=== PATIENT | male | born 1945 | race Caucasian/White ===

== ENCOUNTER → 2017-10-10 09:43 | Outpatient (CLI) | payer MEDICARE, OTHER, SELFPAY ==
--- NOTE | 2017-10-10 09:54 | RAD_ITS ---
STUDY: X-RAY - PELVIS REASON FOR EXAM: Male, 72 years old. Bilateral hip pain, no known injury TECHNIQUE: One view of the pelvis was obtained. COMPARISON: None. FINDINGS: There is a non-specific bowel gas pattern. Normal visualized soft tissue structures. Normal bilateral iliac wings, sacroiliac joints and visualized sacrum. Normal visualized bilateral superior and inferior pubic rami. Normal pubic symphysis. Normal ischial tuberosities. Normal visualized right femoral head. Normal right acetabulum. Normal right hip joint. Normal visualized left femoral head. Normal left acetabulum. Normal left hip joint. There are degenerative changes of the visualized lower lumbar spine. RAD/Pelvis 1 or 2 Views IMPRESSION: Degenerative changes of the visualized lower lumbar spine. The bony pelvis and left and right hip joints appear within normal limits. Electronically Signed: David Lucio MD at 17:00 EDT , Service support ,
[2017-10-10 12:19] LABS: Absolute Lymphocyte Count 1.39 X10^3/ul (0.83-4.51); Absolute Neutrophil Count 4.3 X10^3/uL (2.0-7.7); Basophil# 0.03 X10^3/uL; Basophil% 0.5 % (0-1); Eosinophil# 0.11 X10^3/uL; Eosinophils% 1.7 % (0-5); Hematocrit 47.1 % (40-54); Hemoglobin 15.9 g/dl (13.0-16.5); Lymphocyte # 1.39 X10^3/ul (4.0); Lymphocyte % 21.4 % (19-41); Mean Corp Hgb Conc 33.8 g/gl (32-36); Mean Corpuscular Hgb 28.6 pg (27.0-32.0); Mean Corpuscular Volume 84.9 fL (80-94); Mean Platelet Vol. 11.2 fl (6.2-12.0); Monocyte% 10.8 % (0-10); Neutrophil # 4.26 X10^3/uL (2.7-7.7); Neutrophil % 65.4 % (47-70); Platelet Count 237 K/mm3 (150-450); RBC Distribution Width CV 14.4 % (11.6-14.6); RBC Distribution Width SD 44.7 fl (35.1-43.9); Red Blood Count 5.55 M/mm3 (4.6-6.2); White Blood Count 6.5 K/mm3 (4.4-11.0)
[2017-10-10 12:21] LABS: POSITIVE COUNT NO; POSITIVE DIFFERENTIAL NO; POSITIVE MORPHOLOGY NO
[2017-10-10 12:38] LABS: ALB/GLOB Ratio 1.1 RATIO (0.9-2.4); AST(SGOT) 19 U/L (15-37); Alanine Aminotransfer ALT/SGPT 31 U/L (16-61); Albumin, Serum 4.2 g/dL (3.2-5.0); Alkaline Phosphatase 81 U/L (45-117); Anion Gap 8 (5-15); BUN 20 mg/dL (7-18); BUN/Creat Ratio 18.7 RATIO (10-20); Calcium,Total 9.3 mg/dL (8.5-10.1); Chloride 103 mmol/L (98-107); Creatinine, Serum 1.07 mg/dL (0.70-1.30); EST Glomerular Filtration Rate 72 mL/min (>60); Est Glom Filt Rate - Afr Amer 88 mL/min (>60); Globulin 3.7 g/dL (2.2-4.2); Glucose 87 mg/dL (74-106); Potassium 3.6 mmol/L (3.5-5.1); Protein, Total 7.9 g/dL (6.4-8.2); Rheumatoid Factor < 10.0 IU/mL (<15); Sodium Level 142 mmol/L (136-145)
[2017-10-17 11:33] LABS: CCP IgG Antibodies 18 units (0-19); HEPATITIS B SURFACE AG Negative (Negative); HLA B27 Negative (.); Hep B Surface Antibodies Non Reactive (.); Hep C Antibodies 0.1 s/co ratio (0.0-0.9)
== END ==
PROVIDERS: Family Provider Family Medicine; PCP Family Medicine; Visit Provider Internal Medicine Rheumatology
DX: M06.4 Inflammatory polyarthropathy (principal); M47.897 Other spondylosis, lumbosacral region; I48.91 Unspecified atrial fibrillation; I10 Essential (primary) hypertension; N40.1 Benign prostatic hyperplasia with lower urinary tract symptoms; K57.90 Diverticulosis of intestine, part unspecified, without perforation or abscess without bleeding; G47.33 Obstructive sleep apnea (adult) (pediatric); Z86.73 Personal history of transient ischemic attack (TIA), and cerebral infarction without residual deficits
CPT/HCPCS: 36415; 72170; 80053; 81374; 85025; 86200; 86431; 86706; 86803; 87340

== ENCOUNTER 2023-02-14 07:10 | Emergency (ER) | payer MEDICARE, OTHER, SELFPAY ==
[2023-02-14 07:12] VITALS: BP 162/81; PULSE 74; RESP 16; TEMP 36.2; O2SAT 97; BMI 25.2
--- NOTE | 2023-02-14 07:22 | CT_ITS ---
HISTORY: chest wall pain - broken ribs -- please include all lower ribs. TECHNIQUE: Helically acquired images were obtained of the chest without contrast. A radiation dose optimization technique was used for this scan. 621 images. COMPARISON: XR 12/14/2013. FINDINGS: LARGE AIRWAYS: Patent. LUNGS: Mild linear bibasilar atelectasis and scarring with chronic elevation of the right hemidiaphragm. Scattered micronodular opacities bilaterally. 7 mm irregular groundglass nodule in the left lower lobe. PLEURA: No pneumothorax or significant pleural effusion. Small calcified and noncalcified pleural plaques bilaterally. HEART/PERICARDIUM: Heart within normal limits in size with coronary artery calcification. No pericardial effusion. VESSELS: Thoracic aorta nondilated. MEDIASTINUM/LOUISA: Borderline enlarged calcified and noncalcified mediastinal lymph nodes. UPPER ABDOMEN: 2 to 3 mm nonobstructing bilateral renal calculi. Small calcified granuloma in the liver. BONES: Nondisplaced right ninth and 10th rib fractures laterally. CT/Chest without Contrast IMPRESSION: Nondisplaced right ninth and 10th rib fractures laterally. 7 mm groundglass pulmonary nodule in the left lower lobe. Recommend 6 month follow-up. Scattered pulmonary micronodules, which may be infectious or inflammatory. Small calcified and noncalcified pleural plaques; recommend correlation with occupational exposure history. Small nonobstructing renal calculi. Electronically Signed: Alexandra High MD at 8:22 EST ,
--- NOTE | 2023-02-14 07:23 | EDS_ITS ---
HPI History of Present Illness Chief Complaint: Other, Pain/Inj Informant: patient and spouse/S.O. Narrative Narrative: 77-year-old male presenting to the emergency room with right lower rib pain. Patient reported falling about 1 week ago. He had recent x-rays that revealed 1/9 rib fracture on the right. He states that he was prescribed lidocaine patches but is having a hard time getting them approved through insurance so he has not been utilizing them. He has been taking Tylenol for pain. He denies any cough hemoptysis or emesis. No blood in the stool or urine. No reported fevers. All movement and breathing is painful. He is on Eliquis for atrial fibrillation. She denies any bruising in the area. He notes that he has been constipated has been taking a stool softener. Patient states he had a back injection 1 week ago. He is unsure of exactly what he was given. He states that the day of the injection his right leg was numb. He sat down on the toilet when he went to get up the leg was numb which resulted in the fall. That has subsequently resolved and the back pain has improved. PFSH PFSH Home Medications tamsulosin 0.4 mg capsule 0.4 mg PO DAILY 05/22/13 [History Last Taken 05/22/13 08:00] Apixaban [Eliquis] 5 mg PO BID 60 days 05/23/13 [Rx Last Taken Unknown] atenolol 25 mg tablet 25 mg PO BID ##30 11/16/13 [Rx Last Taken Unknown] Albuterol Sulfate [Proair Hfa] 2 puff IH Q4H PRN PRN Wheezing 12/14/13 [History Last Taken Unknown] Cetirizine Hcl [Zyrtec] 10 mg PO DAILY 12/14/13 [History Last Taken Unknown] aspirin 81 mg chewable tablet 81 mg PO DAILY@0800 12/14/13 [History Last Taken Unknown] flecainide 50 mg tablet 100 mg PO BID 12/14/13 [History Last Taken Unknown] magnesium oxide 400 mg (241.3 mg magnesium) tablet 400 mg PO DAILY 12/14/13 [History Last Taken Unknown] docusate sodium 100 mg capsule (Colace) 100 mg PO BID PRN constipation #20 caps 02/14/23 [Rx Last Taken Unknown] oxycodone-acetaminophen 5 mg-325 mg tablet 1 tab PO Q6H PRN PRN pain 5 days #20 TABLETS 02/14/23 [Rx Last Taken Unknown] Allergy/AdvReac Type Severity Reaction Status Date / Time nabumetone [From Relafen] AdvReac Nausea/Vom/ Verified 02/14/23 07:13 Diarrhea oxaprozin [From Daypro] AdvReac Nausea/Vom/ Verified 02/14/23 07:13 Diarrhea simvastatin [From Zocor] AdvReac Other Verified 02/14/23 07:13 Social History Smoking Status: Unknown if ever smoked ROS ROS ED Constitutional Constitutional ED: Denies chills, fever(s) or weight loss Eyes Eyes: Denies change in vision or diplopia ENT ENT ED: Denies ear pain, rhinorrhea or sore throat Cardiovascular Cardiovascular: Reports chest pain; Denies orthopnea, palpitations or racing heartbeat Respiratory/Chest Respiratory/Chest: Denies cough, dyspnea or orthopnea Gastrointestinal Gastrointestinal: Reports constipation; Denies abdominal pain, diarrhea, nausea or vomiting Genitourinary Genitourinary ED: Denies dysuria, hematuria or urinary frequency Musculoskeletal Musculoskeletal: Reports back pain; Denies arthralgias or myalgias Integumentary Denies abscess or rash Neurologic Neurologic: Denies headache(s) or weakness Psychiatric Psychiatric: Denies anxiety, depression, suicidal ideation or suicidal thoughts Endocrine Endocrinology: Denies polydipsia, polyphagia or polyuria Allergic/Immunologic Allergic/Immunologic ED: Denies mouth swelling, tongue swelling or urticaria EXAM Physical Exam Const Vital Signs: 02/14/23 07:12 02/14/23 07:18 Temperature 97.2 F L Temperature Source Temporal Pulse Rate 74 Respiratory Rate 16 Respiratory Effort Normal Non-Labored Respiratory Pattern Normal Blood Pressure 162/81 H Blood Pressure Mean 108 Pulse Ox 97 Oxygen Delivery Method Room Air Positive well nourished and well developed General Appearance ED: well developed HEENT Reports normocephalic, head/scalp atraumatic and moist mucous membranes Eyes PERRL and EOMs intact bilaterally Neck no lymphadenopathy, supple and no JVD Chest Wall Chest Narrative: Patient is splinting holding the right mid to lower ribs. He has tenderness in the mid axillary region. No ecchymosis seen. No crepitance. Resp normal respiratory effort and clear to auscultation bilaterally Cardio regular rate, regular rhythm and no murmurs GI normal to inspection, nondistended, normoactive bowel sounds and non-tender Palpation: soft Back/Spine no CVA tenderness and normal ROM Extremity normal to inspection General Extremety ED: Negative for edema General Extremity: Negative for edema Neuro oriented x3 and CN's II-XII intact bilaterally Sensorium / Orientation: alert Motor Exam: strength 5/5 throughout Psych mental status grossly normal Mood & Affect: Negative for depressed or tearful Skin no rashes or lesions noted and no wounds MDM MDM MDM Narrative Medical decision making narrative: Basic blood work was obtained and was negative. BUN of 21 with creatinine 1.14. White count 9.6. Normal liver enzymes. CT of the chest demonstrated nondisplaced fractures of the ninth and 10th rib fracture. No pleural effusion pulmonary contusion or infiltrate noted. No obvious liver or renal injury. Patient received morphine and Toradol and is resting more comfortably. I discussed with the above results with the patient and his . We will treat at home with Percocet. Because of the constipation was also encouraged to drink fluids and I will write for twice daily Colace. I will have him follow-up with primary care in a week return if worsening or concerns History & Record Review Discussion w/independent historian: Patient and Family Lab Data Attestation: I reviewed the patient's lab results. Labs: Laboratory Results - last 24 hr 02/14/23 07:29 WBC 9.6 RBC 5.45 Hgb 15.6 Hct 48.1 MCV 88.3 MCH 28.6 MCHC 32.4 RDW Std Deviation 48.3 H RDW Coeff of Dae 14.9 H Plt Count 231 MPV 10.6 Immature Gran % (Auto) 0.600 Neut % (Auto) 73.4 H Lymph % (Auto) 15.8 L [place] % (Auto) 7.8 Eos % (Auto) 1.9 Baso % (Auto) 0.5 Absolute Neuts (auto) 7.0 Absolute Lymphs (auto) 1.51 Nucleated RBC % 0 Sodium 137 Potassium 4.0 Chloride 104 Carbon Dioxide 29.0 Anion Gap 4 L BUN 29 H Creatinine 1.14 Estim Creat Clear Calc 62.30 Est GFR (MDRD) Af Amer 80 Est GFR (MDRD) Non-Af 66 BUN/Creatinine Ratio 25.4 H Glucose 99 Calcium 9.6 Total Bilirubin 0.60 AST 13 L ALT 32 Alkaline Phosphatase 84 Total Protein 7.9 Albumin 4.1 Globulin 3.8 Albumin/Globulin Ratio 1.1 Radiography Diagnostic Testing: Clinical Impression(s) from Imaging Studies Chest CT 02/14/23 07:22 IMPRESSION: Nondisplaced right ninth and 10th rib fractures laterally. 7 mm groundglass pulmonary nodule in the left lower lobe. Recommend 6 month follow-up. Scattered pulmonary micronodules, which may be infectious or inflammatory. Small calcified and noncalcified pleural plaques; recommend correlation with occupational exposure history. Small nonobstructing renal calculi. Electronically Signed: Alexandra High MD at 8:22 EST , Discharge Plan Triage Chief Complaint: Other, Pain/Inj ED Provider: Hossein Lindquist Dx/Rx/DC Orders Clinical Impression: Acute chest wall pain, Ribs, multiple fractures, Anticoagulated Instructions: ED Rib Fracture Prescriptions: New oxycodone-acetaminophen [oxycodone-acetaminophen] 5-325 mg tablet 1 tab PO Q6H PRN PRN (Reason: pain) 5 Days Qty: 20 0RF docusate sodium [Colace] 100 mg capsule 100 mg PO BID PRN (Reason: constipation) Qty: 20 0RF No Action tamsulosin 0.4 MG capsule 0.4 mg PO DAILY Patient Comments: BPH Apixaban [Eliquis] 5 MG tablet 5 mg PO BID 60 Days 0RF Patient Comments: blood thinner atenolol 25 MG tablet 25 mg PO BID Qty: 30 0RF Albuterol Sulfate [Proair Hfa] 8.5 GM Hfa.Aer.Ad 2 puff IH Q4H PRN PRN (Reason: Wheezing) Patient Comments: magnesium oxide 400 MG tablet 400 mg PO DAILY flecainide 50 MG tablet 100 mg PO BID Patient Comments: aspirin 81 MG tablet,chewable 81 mg PO DAILY@0800 Cetirizine Hcl [Zyrtec] 10 MG tablet 10 mg PO DAILY Primary Care Provider: Darius Hawley Referrals: Darius Hawley MD [Primary Care Provider] - 1 Week Disposition Disposition: Home, Self Care
[2023-02-14] MEDS: Morphine 4 MG/ML Syringe IV (07:37)
[2023-02-14] MEDS: Ondansetron 4 MG/2 ML Vial IV (07:37)
[2023-02-14] MEDS: Ketorolac 15 MG/ML Vial IV (07:37)
[2023-02-14 07:40] LABS: Absolute Lymphocyte Count 1.51 X10^3/uL (0.83-4.51); Basophil# 0.05 X10^3/uL; Basophil% 0.5 % (0-1); Eosinophil# 0.18 X10^3/uL; Eosinophils% 1.9 % (0-5); Hematocrit 48.1 % (40-54); Hemoglobin 15.6 g/dL (13.0-16.5); Lymphocyte # 1.51 X10^3/ul (0.83-4.51); Lymphocyte % 15.8 % (19-41); Mean Corp Hgb Conc 32.4 g/dL (32-36); Mean Corpuscular Hgb 28.6 pg (27.0-32.0); Mean Corpuscular Volume 88.3 fL (80-94); Mean Platelet Vol. 10.6 fl (6.2-12.0); Monocyte# 0.75 X10^3/uL; Monocyte% 7.8 % (0-10); NRBC Flagged by Analyzer 0 % (0-5); Neutrophil # 7.03 X10^3/uL (2.7-7.7); Neutrophil % 73.4 % (47-70); Platelet Count 231 K/mm3 (150-450); RBC Distribution Width CV 14.9 % (11.6-14.6); RBC Distribution Width SD 48.3 fl (35.1-43.9); Red Blood Count 5.45 M/mm3 (4.6-6.2); White Blood Count 9.6 K/mm3 (4.4-11.0)
[2023-02-14 07:57] LABS: ALB/GLOB Ratio 1.1 RATIO (0.9-2.4); AST(SGOT) 13 U/L (15-37); Alanine Aminotransfer ALT/SGPT 32 U/L (16-61); Albumin, Serum 4.1 g/dL (3.2-5.0); Alkaline Phosphatase 84 U/L (45-117); Anion Gap 4 (5-15); BUN 29 mg/dL (7-18); BUN/Creat Ratio 25.4 RATIO (10-20); Calcium,Total 9.6 mg/dL (8.5-10.1); Chloride 104 mmol/L (98-107); Creatinine, Serum 1.14 mg/dL (0.70-1.30); EST Glomerular Filtration Rate 66 mL/min (>60); Est Glom Filt Rate - Afr Amer 80 mL/min (>60); Globulin 3.8 g/dL (2.2-4.2); Glucose 99 mg/dL (74-106); Protein, Total 7.9 g/dL (6.4-8.2); Sodium Level 137 mmol/L (136-145)
[2023-02-14 09:23] VITALS: BP 124/63; PULSE 78; RESP 16; O2SAT 97
== END 2023-02-14 09:25 | disposition home or self-care (01) ==
PROVIDERS: Emergency Provider Emergency Medicine; PCP Family Medicine; Referring Provider Emergency Medicine; Visit Provider Emergency Medicine
DX: S22.41XA Multiple fractures of ribs, right side, initial encounter for closed fracture (principal); I48.91 Unspecified atrial fibrillation; W19.XXXA Unspecified fall, initial encounter; K59.00 Constipation, unspecified; M54.9 Dorsalgia, unspecified; Z79.01 Long term (current) use of anticoagulants; Z79.82 Long term (current) use of aspirin; Z79.899 Other long term (current) drug therapy
CPT/HCPCS: 71250; 80053; 85025; 96374; 96375; 99283; A4216; J2405